=== PATIENT | female | born 2000 | race Asian ===

== ENCOUNTER 2023-06-03 11:42 | Emergency (ER) | payer OTHER ==
[~2023-06-03] VITALS: Ht 157.5 cm; Wt 51.0 kg
[2023-06-03 11:58] VITALS: BP 112/74; PULSE 74; RESP 20; TEMP 100; O2SAT 97
[2023-06-03] MEDS ORDERED: ACETAMINOPHEN EXTRA STRENGTH 500 MG TAB PO ONE (12:15)
[2023-06-03 13:21] LABS: FLU A ANTIGEN negative (NEGATIVE); FLU B ANTIGEN negative (NEGATIVE)
[2023-06-03] MEDS ORDERED: ACET-10509 PO (13:24)
[2023-06-03] MEDS ORDERED: IBUP-1842 PO (13:24)
[2023-06-03 13:35] VITALS: TEMP 98.6
== END 2023-06-03 13:35 | disposition home or self-care (01) ==
LOC: MED 11:42
DX: J06.9 Acute upper respiratory infection, unspecified (principal); Z20.822 Contact with and (suspected) exposure to COVID-19; Z79.899 Other long term (current) drug therapy; Z79.1 Long term (current) use of non-steroidal anti-inflammatories (NSAID)
CPT/HCPCS: 99283